=== PATIENT | male | born 1955 | race Caucasian/White ===

== ENCOUNTER 2017-10-19 07:08 | Day surgery (SDC) | payer BC, OTHER ==
[2017-10-14 15:23] VITALS: BMI 28.7
[2017-10-19] MEDS ORDERED: PROPOFOL 20 ML ONE ×2 (07:11)
[2017-10-19] MEDS ORDERED: LIDOCAINE HCL/PF 2% SDV 5ML VIAL ONE (07:26)
[2017-10-19 09:06] VITALS: TEMP 97.7
[2017-10-19 09:28] VITALS: BP 126/77; PULSE 59
--- NOTE | 2017-10-21 11:31 | PATH ---
Surgical Pathology Report Patient Name: KARSTEN MENJIVAR [facility]. Rec. #: [id number] /Age/Gender: 1955 (Age: 62) / M Account: [id number] Location: [facility]END[facility] Taken: 10/19/2017 Received: 10/19/2017 Reported: 10/21/2017 Physicians: Mauro Disla M.D. Specimen(s) Received RECTO SIGMOID Clinical History Family history of colon cancer Postoperative diagnosis colon polyps Final Diagnosis A. RECTOSIGMOID, BIOPSY: HYPERPLASTIC POLYP. Electronically Signed Gold Abdul M.D. Gross Description Received in formalin, labeled "rectosigmoid" are 4 maya, irregular portions of soft tissue ranging in size from 0.1-0.2 cm. in greatest dimension. The specimens are submitted in toto in [one] cassette. YURY/10/19/2017 dianne/10/19/2017
== END 2017-10-19 09:30 | disposition home or self-care (01) ==
LOC: FASU-ENDO 07:08
PROVIDERS: ATTEND Internal Medicine Gastroenterology
PROC: 0DBN8ZX Excision of Sigmoid Colon, Via Natural or Artificial Opening Endoscopic, Diagnostic (ICD-10-PCS; principal; 2017-10-19 08:38)
DX: Z86.010 Personal history of colon polyps (principal); Z80.0 Family history of malignant neoplasm of digestive organs; K63.5 Polyp of colon; K57.30 Diverticulosis of large intestine without perforation or abscess without bleeding
CPT/HCPCS: 88305-TC

== ENCOUNTER 2022-11-27 08:03 | Day surgery (SDC) | payer OTHER ==
[2022-11-25 15:07] VITALS: BMI 26.3
[2022-11-27 08:19] VITALS: RESP 17; TEMP 97
[2022-11-27 17:18] VITALS: BP 108/68; PULSE 57
== END 2022-11-27 10:00 | disposition home or self-care (01) ==
LOC: FASU-ENDO 08:03
PROVIDERS: ATTEND Internal Medicine Gastroenterology
PROC: 0DBN8ZX Excision of Sigmoid Colon, Via Natural or Artificial Opening Endoscopic, Diagnostic (ICD-10-PCS; principal; 2022-11-27 08:51)
DX: Z12.11 Encounter for screening for malignant neoplasm of colon (principal); Z86.010 Personal history of colon polyps; Z80.0 Family history of malignant neoplasm of digestive organs; K57.30 Diverticulosis of large intestine without perforation or abscess without bleeding; K63.5 Polyp of colon
CPT/HCPCS: 88305-TC